=== PATIENT | male | born 1965 | race Caucasian/White ===

== ENCOUNTER → 2020-07-14 | Outpatient (CLI) | payer BC ==
[~2020-07-14] MED LIST: ASPIRIN 81M81 MG/TA2 PO; BYSTOLIC10 MG PO; CEPHALEXIN500 M1; MVI; NORCO 325 MG-7.1 TAB PO; ROXICODONE 55 MG/TAB; ZESTORETIC 12.51 TA1 PO; ZESTRIL 20MG TA20 MG PO; ZOCOR 20MG20 MG PO
== END ==
LOC: COL.RAD 10:24
DX: M25.551 Pain in right hip (principal)
CPT/HCPCS: J3301; Q9967

== ENCOUNTER 2022-07-15 14:07 | Emergency (ER) | payer BC ==
[~2022-07-15] VITALS: Ht 190.5 cm; Wt 108.2 kg
[2022-07-15 14:57] LABS: BASO % 0.2 % (0.0-2.0); GRAN # 9.3 K/mm3 (1.4-6.5); GRAN % 88.6 % (42.2-75.2); HEMATOCRIT 39.4 % (42.0-52.0); LYMPH # 0.4 K/mm3 (1.2-3.4); LYMPH % 3.9 % (20.0-51.0); MEAN CELL VOLUME 87 fl (80.0-100.0); MEAN CORPUSCULAR HEMOGLOBIN 31 pg (27-31); MEAN CORPUSCULAR HGB CONC 36 g/dl (33.0-37.0); MEAN PLATELET VOLUME 9.3 fl (7.4-10.4); MONO # 0.7 K/mm3 (0.1-0.6); MONO % 6.6 % (1.7-9.3); PLATELET COUNT 171 K/mm3 (130-400); RED BLOOD COUNT 4.53 M/mm3 (4.20-5.60); REDCELL DISTRIBUTION WIDTH-CV 12.3 % (11.5-14.5)
[2022-07-15 15:19] LABS: ALBUMIN 3.8 gm/dL (3.5-5.0); C-REACTIVE PROTEIN 6.93 mg/dL (0.00-0.50); CALCIUM 8.5 mg/dL (8.4-10.2); CREATININE, serum 1.03 mg/dL (0.72-1.25); POTASSIUM 3.2 mmol/L (3.5-4.5); TOTAL PROTEIN 6.8 gm/dL (6.2-8.1)
[2022-07-15 15:25] LABS: TROPONIN-I 0.028 ng/mL (0.00-0.033)
[2022-07-15 15:55] LABS: COLLECTION METHOD CLEAN CATCH
[2022-07-15 16:04] LABS: MUCOUS Present (NOT PRESENT); SQUAMOUS EPITHELIAL None Seen /hpf (0-10); URINE BACTERIA None Seen /hpf (NONE SEEN); URINE RBC 0-2 /hpf (0-2)
[2022-07-15 16:05] LABS: URINE APPEARANCE Clear (CLEAR/HAZY); URINE BLOOD Negative (NEGATIVE); URINE COLOR Yellow (YELLOW); URINE GLUCOSE Negative (NEGATIVE); URINE KETONE Negative (NEGATIVE); URINE NITRATE Negative (NEGATIVE); URINE PROTEIN(semi-quant) 1+ (NEGATIVE)
[2022-07-15] MEDS ORDERED: BACTRIM DS 8001 TAB PO (16:37)
[2022-07-15] MEDS ORDERED: CEPHALEXIN500 M1 PO (16:37)
[2022-07-15 16:59] VITALS: BP 120/74; PULSE 80; TEMP 99.6
== END 2022-07-15 16:57 | disposition home or self-care (01) ==
LOC: COL.ER 14:07
PROVIDERS: Nurse Practitioner
DX: L03.115 Cellulitis of right lower limb (principal); Z28.310 Unvaccinated for COVID-19
CPT/HCPCS: J0696; J7120